=== PATIENT | female | born 1960 | race American Indian/Alaskan Native ===

== ENCOUNTER 2018-06-14 15:01 | Emergency (ER) | payer SELFPAY ==
--- NOTE | 2018-06-14 15:12 | Emergency Department Report ---
Blank Doc - Documentation Documentation: This is a 58-year-old female that presents with mouth pain s/p surgery from to day. Stated was sent by Dr. Nava to r/o sepsis due to n/v Vitals stable. Patient is not toxic. Well in appearance. This initial assessment/diagnostic orders/clinical plan/treatment(s) is/are subj ect to change based on patient's health status, clinical progression and re- assessment by fellow clinical providers in the ED. Further treatment and workup at subsequent clinical providers discretion. Patient/guardians urged not to elope from the ED as their condition may be serious if not clinically assessed and managed. Initial orders include: 1- Patient sent to MAIN ED for further evaluation and treatment 2- labs
[2018-06-14 15:35] LABS: Basophils % (Auto) 0.5 % (0.0-1.8); Eosinophils # (Auto) 0.1 K/mm3 (0.0-0.4); Eosinophils % (Auto) 1.2 % (0.0-4.3); Hematocrit 42.5 % (30.3-42.9); Lymphocytes # (Auto) 1.9 K/mm3 (1.2-5.4); Lymphocytes % (Auto) 27.1 % (13.4-35.0); Mean Corpuscular HGB Conc 33 % (30-34); Mean Corpuscular Volume 82 fl (79-97); Monocytes # (Auto) 0.4 K/mm3 (0.0-0.8); Monocytes % (Auto) 5.3 % (0.0-7.3); Platelet Count 246 K/mm3 (140-440); Red Blood Count 5.22 M/mm3 (3.65-5.03); Red Cell Distribution Width 14.3 % (13.2-15.2)
[2018-06-14 15:56] LABS: Alanine Aminotransferase 21 units/L (7-56); Albumin 4.3 g/dL (3.9-5); BUN/Creatinine Ratio 6; Blood Urea Nitrogen 4 mg/dL (7-17); Calcium 9.5 mg/dL (8.4-10.2); Hemolysis Index 3
[2018-06-14 16:35] LABS: Bilirubin,Direct < 0.2 mg/dL (0-0.2)
[2018-06-14] MEDS ORDERED: ZOFRAN IV ONE (22:01)
[2018-06-14] MEDS ORDERED: SUBLIMAZE IV ONE (22:01)
[2018-06-14] MEDS ORDERED: NACL 0.9% 1000 ML 1,000 ML IV ONE (22:03)
--- NOTE | 2018-06-14 22:07 | Emergency Department Report ---
HPI - General Chief Complaint: Nausea/Vomiting/Diarrhea Time Seen by Provider: 06/14/18 15:10 - HPI HPI: Room 23 The patient is a 58-year-old female presenting with a chief complaint of oral pain and diarrhea. The patient states she had an intraoral surgical procedure performed by Dr. Farr (ENT) 5 days ago. There was a sublingual incision made. The patient states she continued to drain from the surgical site and subsequently returned to see ENT this morning so the procedure was repeated. The patient states she went home this morning but then began bleeding from the surgical site so she returned to see the ENT who in turn packed surgical site. Family states the patient continued to have diarrhea so she contacted her primary physician f(Dr. Hernandez) who in turn instructed the patient to come to the ED. Patient reports history of fever 2 days ago. Patient is currently on amoxicillin. The patient states she has been on a liquid diet for the past 2 weeks and she is able to keep liquids down. Patient denies nausea or vomiting Location: [See above] Duration: [See above] Quality: [See above] Severity: 10/16 Modifying factors: [see above] Context: [see above] Mode of transportation: [not driving] ED Past Medical Hx - Past Medical History Hx Hypertension: Yes (preeclampsia with blindness for 3 days) Additional medical history: reflux - Surgical History Additional Surgical History: 2 - Family History Family history: no significant - Social History Smoking Status: Former Smoker (none since 1998) Substance Use Type: None - Medications Home Medications: Home Medications Medication Instructions Recorded Confirmed Last Taken Type Esomeprazole Magnesium [Nexium] 40 mg PO QDAY 11/24/12 11/24/12 Unknown History Lisinopril [Zestril] 10 mg PO BID 11/24/12 11/24/12 11/24/12 History Potassium Chloride [Klor-Con 8] 8 meq PO QDAY 11/24/12 11/24/12 11/24/12 History Verapamil HCl [Verapamil ER] 240 mg PO 11/24/12 11/24/12 11/24/12 History hydroCHLOROthiazide [Hctz] 25 mg PO QDAY 11/24/12 11/24/12 11/24/12 History ED Review of Systems ROS: Stated complaint: MOUTH PAIN/SURGERY TODAY Other details as noted in HPI Constitutional: fever Eyes: denies: eye pain ENT: other (oral pain) Respiratory: no symptoms reported Cardiovascular: denies: chest pain Endocrine: no symptoms reported Gastrointestinal: diarrhea. denies: abdominal pain, nausea, vomiting Genitourinary: denies: dysuria Musculoskeletal: denies: back pain Neurological: denies: headache Physical Exam - Physical Exam Vital Signs: Vital Signs 06/14/18 15:05 Temperature 98 F Pulse Rate 70 Respiratory 16 Rate Blood Pressure 162/97 O2 Sat by Pulse 98 Oximetry Physical Exam: GENERAL: The patient is well-developed well-nourished female sitting on stretcher appearing to be in mild discomfort. [] HEENT: Normocephalic. Atraumatic. Extraocular motions are intact. Sublingual surgical site packed with gauze. No active hemorrhage seen NECK: Supple. Trachea midline CHEST/LUNGS: Clear to auscultation. There is no respiratory distress noted. HEART/CARDIOVASCULAR: Regular. There is no tachycardia. There is no gallop rub or murmur. ABDOMEN: Abdomen is soft, nontender. Patient has normal bowel sounds. There is no abdominal distention. SKIN: There is no rash. There is no edema. There is no diaphoresis. NEURO: The patient is awake, alert, and oriented. The patient is cooperative. The patient has normal speech MUSCULOSKELETAL: There is no evidence of acute injury. ED Course Vital Signs 06/14/18 15:05 Temperature 98 F Pulse Rate 70 Respiratory 16 Rate Blood Pressure 162/97 O2 Sat by Pulse 98 Oximetry ED Medical Decision Making - Lab Data Result diagrams: 06/14/18 15:17 06/14/18 15:17 Laboratory Tests 06/14/18 06/14/18 06/14/18 15:17 15:17 15:17 WBC 7.2 RBC 5.22 H Hgb 14.0 Hct 42.5 MCV 82 MCH 27 L MCHC 33 RDW 14.3 Plt Count 246 Lymph % (Auto) 27.1 [place] % (Auto) 5.3 Eos % (Auto) 1.2 Baso % (Auto) 0.5 Lymph # 1.9 [place] # 0.4 Eos # 0.1 Baso # 0.0 Seg Neutrophils % 65.9 Seg Neutrophils # 4.7 Sodium 138 Potassium 4.3 Chloride 97.7 L Carbon Dioxide 28 Anion Gap 17 BUN 4 L Creatinine 0.7 Estimated GFR > 60 BUN/Creatinine Ratio 6 Glucose 113 H Lactic Acid 2.30 H* Calcium 9.5 Total Bilirubin 0.30 Direct Bilirubin < 0.2 Indirect Bilirubin 0.1 AST 15 ALT 21 Alkaline Phosphatase 98 Total Protein 7.8 Albumin 4.3 Albumin/Globulin Ratio 1.2 Lipase 17 06/14/18 20:39 WBC RBC Hgb Hct MCV MCH MCHC RDW Plt Count Lymph % (Auto) [place] % (Auto) Eos % (Auto) Baso % (Auto) Lymph # [place] # Eos # Baso # Seg Neutrophils % Seg Neutrophils # Sodium Potassium Chloride Carbon Dioxide Anion Gap BUN Creatinine Estimated GFR BUN/Creatinine Ratio Glucose Lactic Acid 2.50 H* Calcium Total Bilirubin Direct Bilirubin Indirect Bilirubin AST ALT Alkaline Phosphatase Total Protein Albumin Albumin/Globulin Ratio Lipase - Differential Diagnosis enteritis Critical care attestation.: If time is entered above; I have spent that time in minutes in the direct care of this critically ill patient, excluding procedure time. ED Disposition Clinical Impression: Lactic acidosis, Diarrhea, Postoperative pain Disposition: OP ADMIT IP TO THIS HOSP Is pt being admited?: Yes Does the pt Need Aspirin: No Condition: Fair Referrals: PURNIMA HERNANDEZ MD [Primary Care Provider] - 3-5 Days Time of Disposition: 22:20 (hospitalist paged (Dr Jami Haider))
[2018-06-15] MEDS ORDERED: SUBLIMAZE IV ONE (00:14)
[2018-06-15] MEDS ORDERED: VASELINE LIP THERAPY TP PRN (01:00)
[2018-06-15] MEDS ORDERED: VASELINE LIP THERAPY TP ONE (01:33)
[2018-06-15 01:44] VITALS: BP 138/85
== END 2018-06-15 01:44 | disposition admitted as inpatient to this hospital (09) ==
LOC: ED 15:01
DX: E87.2 Acidosis (principal); G89.18 Other acute postprocedural pain; R19.7 Diarrhea, unspecified; I10 Essential (primary) hypertension; K21.9 Gastro-esophageal reflux disease without esophagitis; Z87.891 Personal history of nicotine dependence
CPT/HCPCS: 36415; 80048; 80076; 82140; 83690; 85025; 96361; 96374; 96375; 96376; 99284; J2405; J3010; J7030

== ENCOUNTER 2019-11-02 09:11 | Emergency (ER) | payer BC ==
[2019-11-02 09:23] VITALS: BP 139/90
--- NOTE | 2019-11-02 10:59 | Emergency Department Report ---
ED ENT HPI - General Chief complaint: Dental/Oral Stated complaint: INFECTION IN MOUTH Time Seen by Provider: 11/02/19 10:54 Source: patient Mode of arrival: Ambulatory Limitations: No Limitations - History of Present Illness Initial comments: 59-year-old -[place] female presents to the emergency room reporting to the abscess in her mouth. Patient states that she has been on amoxicillin but felt like it was not helping. Patient states that she did take Tylenol last night and she did notice some improvement in her swallowing. Patient denies any fever chills no nausea no vomiting. MD complaint: sore throat Onset/Timin -: week(s) Location: throat Severity: mild Severity scale (0 -10): 2 Quality: aching, sharp Consistency: intermittent Improves with: other (Tylenol) Worsens with: swallowing (That has improved) Associated Symptoms: pain with swallowing (Has improved), sore throat. denies: fever, cough, gum swelling - Related Data Home Medications Medication Instructions Recorded Confirmed Last Taken Esomeprazole Magnesium [Nexium] 40 mg PO QDAY 11/24/12 11/24/12 Unknown Potassium Chloride [Klor-Con 8] 8 meq PO QDAY 11/24/12 11/24/12 11/24/12 Verapamil HCl [Verapamil ER] 240 mg PO 11/24/12 11/24/12 11/24/12 hydroCHLOROthiazide [Hctz] 25 mg PO QDAY 11/24/12 11/24/12 11/24/12 lisinopriL [Zestril] 10 mg PO BID 11/24/12 11/24/12 11/24/12 Allergies Allergy/AdvReac Type Severity Reaction Status Date / Time No Known Allergies Allergy Unverified 11/24/12 12:26 ED Dental HPI - General Chief complaint: Dental/Oral Stated complaint: INFECTION IN MOUTH Time Seen by Provider: 11/02/19 10:54 Source: patient Mode of arrival: Ambulatory Limitations: No Limitations - Related Data Home Medications Medication Instructions Recorded Confirmed Last Taken Esomeprazole Magnesium [Nexium] 40 mg PO QDAY 11/24/12 11/24/12 Unknown Potassium Chloride [Klor-Con 8] 8 meq PO QDAY 11/24/12 11/24/12 11/24/12 Verapamil HCl [Verapamil ER] 240 mg PO 11/24/12 11/24/12 11/24/12 hydroCHLOROthiazide [Hctz] 25 mg PO QDAY 11/24/12 11/24/12 11/24/12 lisinopriL [Zestril] 10 mg PO BID 11/24/12 11/24/12 11/24/12 Allergies Allergy/AdvReac Type Severity Reaction Status Date / Time No Known Allergies Allergy Unverified 11/24/12 12:26 ED Review of Systems ROS: Stated complaint: INFECTION IN MOUTH Other details as noted in HPI Comment: All other systems reviewed and negative ED Past Medical Hx - Past Medical History Hx Hypertension: Yes (preeclampsia with blindness for 3 days) Additional medical history: reflux - Surgical History Additional Surgical History: 2 - Social History Smoking Status: Never Smoker - Medications Home Medications: Home Medications Medication Instructions Recorded Confirmed Last Taken Type Esomeprazole Magnesium [Nexium] 40 mg PO QDAY 11/24/12 11/24/12 Unknown History Potassium Chloride [Klor-Con 8] 8 meq PO QDAY 11/24/12 11/24/12 11/24/12 History Verapamil HCl [Verapamil ER] 240 mg PO 11/24/12 11/24/12 11/24/12 History hydroCHLOROthiazide [Hctz] 25 mg PO QDAY 11/24/12 11/24/12 11/24/12 History lisinopriL [Zestril] 10 mg PO BID 11/24/12 11/24/12 11/24/12 History ED Physical Exam - General Limitations: No Limitations General appearance: alert, in no apparent distress - Head Head exam: Present: atraumatic, normocephalic - Eye Eye exam: Present: normal appearance - ENT ENT exam: Present: mucous membranes moist - Expanded ENT Exam Expanded Mouth exam: Present: normal external inspection Throat exam: Positive: normal inspection. Negative: tonsillar erythema, tonsillomegaly, tonsillar exudate - Neck Neck exam: Present: normal inspection, full ROM. Absent: lymphadenopathy - Respiratory Respiratory exam: Present: normal lung sounds bilaterally. Absent: respiratory distress - Cardiovascular Cardiovascular Exam: Present: regular rate, normal rhythm. Absent: systolic murmur, diastolic murmur, rubs, gallop - Neurological Exam Neurological exam: Present: alert, oriented X3, normal gait - Psychiatric Psychiatric exam: Present: normal affect, normal mood - Skin Skin exam: Present: warm, dry, intact, normal color. Absent: rash ED Course Vital Signs 11/02/19 09:19 Temperature 98.0 F Pulse Rate 67 Respiratory 18 Rate Blood Pressure 139/90 O2 Sat by Pulse 99 Oximetry ED Medical Decision Making - Medical Decision Making 59-year-old -[place] female presents to the emergency room reporting to the abscess in her mouth. Patient states that she has been on amoxicillin but felt like it was not helping. Patient states that she did take Tylenol last night and she did notice some improvement in her swallowing. Patient denies any fever chills no nausea no vomiting. Discussed with patient that her throat appears to be improved. I encouraged her to continue with the Cepacol Tylenol or ibuprofen for pain management. Encourage patient to increase her water intake. Patient is to follow-up with her primary care provider if she has any further concerns. Critical care attestation.: If time is entered above; I have spent that time in minutes in the direct care of this critically ill patient, excluding procedure time. ED Disposition Clinical Impression: Acute sore throat Disposition: DC-01 TO HOME OR SELFCARE Is pt being admited?: No Does the pt Need Aspirin: No Condition: Stable Additional Instructions: Please continue with Tylenol or ibuprofen for pain management. Increase your water intake. Follow-up with your primary care provider if you have any further concerns. Referrals: PURNIMA HERNANDEZ MD [Primary Care Provider] - 3-5 Days Forms: Work/School Release Form(ED)
== END 2019-11-02 11:15 | disposition home or self-care (01) ==
LOC: ED 09:11
DX: J02.9 Acute pharyngitis, unspecified (principal); I10 Essential (primary) hypertension; K21.9 Gastro-esophageal reflux disease without esophagitis; Z79.899 Other long term (current) drug therapy; Z98.890 Other specified postprocedural states
CPT/HCPCS: 99282